=== PATIENT | male | born 1965 ===

== ENCOUNTER 2024-12-30 12:47 | Outpatient (AMB) | payer BC, SELFPAY ==
--- NOTE | 2024-12-30 12:54 | MHC.OFFWIV ---
Intake Vital Signs 12/30/24 12:57 12/30/24 13:49 Height 5 ft 5 in Weight 181 lb 2 oz BMI 30.1 BP 142/80 H 130/80 Blood Pressure Location Lt brachial Rt brachial Position Sitting Sitting Respiration 13 Pulse 104 H Pulse Source Pulse Oximeter Temp 98.2 F Temp Source Oral Pulse Oximetry (%) 95 Oxygen Delivery Method Room Air Intake Visit Reasons: stomach pain Intake Note: Patient complaining of stomach px, lower back pain, sweats , and nauseas started two hours ago Patient Tobacco Use Status: Never used Tobacco Allergies No Known Allergies Allergy (Verified 12/30/24 13:39) Medication List - Last Reconciled 12/30/24 by Christine Hathaway CNP amlodipine mg PO DAILY rosuvastatin mg PO DAILY Do you need a note to return to daycare/school/sports/work: No HPI HPI Comments History of Present Illness Details 59-year-old male presents with complaints of generalized intermittent abdominal pain for the past 3 hours. He describes the pain as burning. The pain radiates to his right flank. He reports associated initial nausea. He vomited x 1 while waiting to be seen in the exam room and he felt significant relief; he has not experienced any pain after he vomited. He received SL Zofran and the nausea completely resolved. He denies hematuria, disuria, discharge with urination, or urinary frequency or urgency. He has fasting from sunrise to sunset during this month of ada. Yesterday evening, he broke his fast with potato salad and cabbage. He endorses flatulence. [facility] Social History Patient Tobacco Use Status: Never used Tobacco Review of Systems Const Details: Const Denies chills, Denies fatigue, Denies fever(s), Denies headache(s) and Denies weakness ENT Denies change in vision, Denies dizziness, Denies headache(s), Denies hearing loss, Denies nasal congestion, Denies sinus pain, Denies sinus pressure and Denies sore throat Resp Denies cough, Denies dyspnea, Denies wheezing and Denies other (shortness of breath) Cardio Denies chest pain, Denies lightheadedness, Denies dyspnea and Denies other (palpitations) Neuro Denies dizziness, Denies headache(s), Denies numbness, Denies tingling and Denies weakness Reports as per HPI Endo Denies fatigue Aller/Immun Denies wheezing Physical Exam Vital Signs: Last Vital Signs Temp 98.2 F 12/30/24 12:57 Pulse 104 H 12/30/24 12:57 Resp 13 12/30/24 12:57 BP 130/80 12/30/24 13:49 Pulse Ox 95 12/30/24 12:57 Oxygen Delivery Method Room Air 12/30/24 12:57 BMI result Body Mass Index 30.1 Const Other: Const General: well developed; No acute distress Nutritional Appearance: well nourished Orientation/consciousness: patient oriented x3 HEENT Head: Yes normocephalic and Yes atraumatic Eyes General: appearance normal, both eyes and all related structures Pupils: Equal, round and reactive pupils present EOM: EOMs intact bilaterally Resp Effort & Inspection: normal respiratory effort Auscultation: clear to auscultation bilaterally Cardio Rate: regular rate Rhythm: regular rhythm Heart sounds: S1 normal heart sound present, S2 normal heart sound present, no gallops, no murmurs and no rubs Bruits: no abdominal aortic bruits and no carotid bruits Neuro General: patient oriented x3 and gait normal, no focal neuro deficit Cranial nerves: Yes Equal, round and reactive pupils present GI Abdomen is soft, tender left upper quadrant and epigastric region, nondistended, hyperactive bowel sounds to the right upper quadrant Right CVA tenderness Psych Affect: normal affect Assessment & Plan Assessment & Plan (1) Abdominal pain: Code(s): R10.9 - Unspecified abdominal pain Plan: Patient presents with generalized intermittent burning abdominal pain for the past 3 hours. He vomited x1 and his pain completely resolved. Abdomen is soft, tender left upper quadrant and epigastric region, nondistended, hyperactive bowel sounds to the right upper quadrant. Right CVA tenderness with the palpation. Likely gastritis and flatulence. Encouraged to avoid gassy foods such as cabbage or broccoli. Also advised to avoid fried or greasy foods. Omeprazole 40 mg daily ordered, advised to take as prescribed. Informed that he may after alter his fasting if his symptoms continues or worsens. Will check urinalysis to monitor renal function. Follow-up as needed. Verbalized understanding and agreed with treatment plan. (2) Right flank pain: Code(s): R10.9 - Unspecified abdominal pain Plan: Plan as above. Orders: Orders UA CC w/rflx Micro + Cult Today R10.9 - Unspecified abdominal pain Medications: New omeprazole 20 mg PO DAILY 30 caps 0RF 30 days Coding Level of Care Code New Pt Level 3 (73337) Diagnoses Abdominal pain R10.9 Right flank pain R10.9
[2024-12-30 12:57] VITALS: BP 142/80; PULSE 104; RESP 13; TEMP 36.8; O2SAT 95; BMI 30.1
[2024-12-30 13:49] VITALS: BP 130/80
== END 2024-12-30 16:36 | disposition home or self-care (01) ==
PROVIDERS: Visit Provider Nurse Practitioner Family
DX: R10.9 Unspecified abdominal pain (principal)

== ENCOUNTER 2024-12-30 14:09 | Outpatient (REF) | payer BC, SELFPAY ==
[2024-12-30 18:38] LABS: Appearance Urine Clear; Color Urine Yellow; Glucose Urine UA Negative (Negative); Leukocyte Esterase Urine Negative (Negative); Nitrite Urine Negative (Negative); Specific Gravity - Urine 1.025 (1.005-1.025); UMIC TRIGGER UACC YES; Urine Blood Trace (Negative); Urine Ketones Trace mg/dL (Negative); Urine Protein Trace mg/dL (Neg-Trace)
[2024-12-30 18:50] LABS: Bacteria Urine None Seen (None Seen); Hyaline Casts Urine 0-2 /LPF (0-2); Squamous Epithelial Cell Urine 0-2 /HPF (0-2); WBC Urine 0-5 /HPF (0-5)
== END 2024-12-30 14:10 | disposition home or self-care (01) ==
LOC: HO.WFDLDS 14:09
PROVIDERS: Visit Provider Nurse Practitioner Family
DX: R10.9 Unspecified abdominal pain (principal)
CPT/HCPCS: 81001